=== PATIENT | male | born 1980 | race Caucasian/White ===

== ENCOUNTER 2019-12-15 15:23 | Emergency (ER) | payer MEDICAID, SELFPAY ==
[2019-12-15] VITALS (10 sets, daily range): BP systolic 119–136; BP diastolic 77–105; PULSE 84–104; RESP 15–19; TEMP 36.5–37.8; O2SAT 94–100; BMI 25.8
[2019-12-15 16:49] LABS: Basophils # 0.1 10^3/uL (0.0-0.1); Basophils % 0.3 %; Eosinophils # 0.2 10^3/uL (0.0-0.8); Eosinophils % 0.6 %; Hematocrit 44.2 % (42.0-52.0); Hemoglobin 14.5 g/dL (11.7-16.6); Lymphocytes # 3.2 10^3/uL (0.8-4.8); Lymphocytes % 12.5 %; Mean Corpuscular HGB Conc 32.8 g/dL (30.0-36.0); Mean Corpuscular Hemoglobin 28.6 pg (28.0-34.0); Mean Corpuscular Volume 87.2 fL (80-94); Monocytes # 1.9 10^3/uL (0.2-0.9); Monocytes % 7.3 %; Neutrophils # 19.14 10^3/uL (1.8-7.7); Neutrophils % 74.3 %; Nucleated Red Blood Cells % 0 %; Platelet Count 630 10^3/cmm (130-400); Red Blood Count 5.07 10^6/uL (4.1-5.3); Red Cell Distribution Width 13.7 % (12.1-15.1); White Blood Count 25.8 10^3/uL (4.0-10.0)
[2019-12-15 17:18] LABS: Alanine Aminotransferase 613 U/L (0-41); Albumin Level 3.1 g/dL (3.5-5.2); Alkaline Phosphatase 141 IU/L (40-130); Anion Gap 15.5 (5-19); Aspartate Amino Transferase 215 U/L (0-40); Blood Urea Nitrogen 18 mg/dL (6-20); Calcium 8.8 mg/dL (8.5-10.5); Carbon Dioxide 28 mmol/L (22-29); Chloride 86 mmol/L (98-107); Globulin 3.5 g/dL (1.3-4.6); Glomerular Filtration Rate 126.2 mL/min (90-130); Glucose 158 mg/dL (65-115); Osmolality Calculated 267 mOsm/kg (285-295); Potassium 3.5 mmol/L (3.5-5.1); Sodium 126 mmol/L (136-145); Total Bilirubin 0.8 mg/dL (0.15-1.2); Total Protein 6.6 g/dL (6.6-8.7)
--- NOTE | 2019-12-15 19:31 | CTR_ITS ---
PROCEDURE INFORMATION: Exam: CT Right Upper Extremity With Contrast, Upper Arm Exam date and time: 12/15/2019 7:53 PM Age: 39 years old Clinical indication: Arm, upper; Right; Patient HX: C/O pain - swelling and drainage ? spider bite; Additional info: Abscess, ? necrotizing fasciitis TECHNIQUE: Imaging protocol: CT of the Right upper extremity with contrast material. Exam focused on the upper arm. Radiation optimization: All CT scans at this facility use at least one of these dose optimization techniques: automated exposure control; mA and/or kV adjustment per patient size (includes targeted exams where dose is matched to clinical indication); or iterative reconstruction. Contrast material: OMNI 300; Contrast volume: 95 ml; Contrast route: INTRAVENOUS (IV); COMPARISON: No relevant prior studies available. RADIATION DOSE METRICS: Total DLP (mGy-cm): 2689.29 FINDINGS: Bones/joints: No osteomyelitis, bony destruction or periosteal reaction. There is no elbow joint effusion. No glenohumeral joint effusion. Soft tissues: There is a large multiloculated peripherally enhancing fluid collection containing multiple air bubbles consistent with a large abscess in the right biceps muscle that is dissecting distally along the entire muscle and tendon ending at the radial tuberosity in the forearm. This abscess on series 307, image 32 measures 21 cm in length and has a greatest AP measurement of 3.8 cm and a greatest transverse measurement of 2.5 cm. At the superior aspect of the abscess/proximal biceps tendon, a small component the abscess is tracking proximally but appears to be dissecting into the fascial plane between the pectoralis muscles along the right chest wall measuring 4.5 x 1.5 x 7.7 cm. There is abundant edema of the skin and subcutaneous fat along the right shoulder and chest wall compatible with cellulitis. No subcutaneous abscess. No additional gas in the muscles to suggest necrotizing fasciitis. Lymph nodes: There is adenopathy in the right axilla. CT/CT humerus RT w con [id number] IMPRESSION: 1. Giant abscess within the biceps muscle and following the distal tendon into the forearm and the proximal tendon proximal to the axilla with a component the abscess that thin dissects medially between the pectoralis muscles. 2. Abundant subcutaneous edema compatible with cellulitis without additional abscess. Note is made that the edema is continuing into the forearm and additional imaging of the forearm is recommended since the biceps abscess distal extent is not entirely included on this exam. 3. There is muscle edema specially in the biceps adjacent to the abscess but no findings of necrotizing fasciitis. No osteomyelitis. No joint effusions. Radiation Dose CTDIVOL = (mGy): DLP = 2689.29 (mGy-cm)
--- NOTE | 2019-12-15 19:35 | W.ED.EXTPRO ---
HPI - Extremity Problem General: Chief complaint: Extremity Injury, Upper Stated complaint: RIGHT ARM WOUND Time Seen by Provider: 12/15/19 18:47 Source: patient Mode of arrival: EMS Limitations: no limitations History of Present Illness: HPI Narrative: Patient is a 39-year-old male who states that he thinks he got bit by a spider on his right elbow about a week ago. He has had a sore there with increased swelling and pain of the right upper extremity. The pain and swelling has gradually worsened he came here to be seen in the emergency department. MD Complaint: extremity pain and extremity swelling Onset (ago): week(s) (1) Pain Consistency: constant Location: upper extremity Severity scale (1-10): 10 Quality: sharp Radiation: proximal Relieving factors: nothing Exacerbating factors: range of motion, weight bearing and palpation Associated symptoms: Reports arthralgias and myalgias; Deny chest pain, fever(s), rash, short of breath or other Review of Systems General: Reports: 10 or more systems reviewed and unremarkable except in HPI and below Const: Denies: fever(s) Eyes: Denies: change in vision or blurry vision ENMT: Denies: throat pain, enlarged tonsils, odynophagia, hoarseness, mouth pain or swelling of lips/tongue Card: Denies: chest pain Resp: Denies: dyspnea, productive cough or non-productive cough GI: Denies: abdominal pain, nausea or vomiting : Denies: flank pain, dysuria, urinary frequency, urinary urgency or urinary hesitancy Musc: Denies: neck pain, back pain or extremity swelling Skin/Breast: Denies: rash Neuro: Denies: headache(s), numbness in extremities or weakness in extremities Endo: Denies: polyuria, polydipsia or tired all the time [facility] ED PFSH: Medical History (Reviewed 12/15/19 @ 19:38 by Scout Alonso MD, [facility] [place] [facility] [place] Anxiety Carpal tunnel syndrome Cervical disc disease Social History (Reviewed 12/15/19 @ 19:38 by Scout Alonso MD, [facility] [place] Smoking and tobacco status: current every day smoker Alcohol intake: current Physical Exam Const: COMMON NORMALS: no acute distress, average body habitus, patient oriented x3, no limitations, healthy appearing, alert and well nourished HENMT: COMMON NORMALS: normocephalic, atraumatic and moist oral mucous membranes HEAD & SCALP: normocephalic and atraumatic Neck/C-Spine: COMMON NORMALS: full ROM, supple, no meningeal signs, no JVD and No carotid bruits Resp: COMMON NORMALS: normal respiratory effort, No retractions, No use of accessory muscles, clear to auscultation bilaterally and percussion normal AUSCULTATION: clear to auscultation bilaterally PERCUSSION: percussion normal Cardio: COMMON NORMALS: no JVD, regular rate, regular rhythm, S1 normal heart sound present, S2 normal heart sound present, No gallops present (Cardio), No clicks present (Cardio), No murmurs present (Cardio), No rub (Cardio) and Peripheral pulses 2+ throughout RATE: regular rate RHYTHM: regular rhythm HEART SOUNDS: S1 normal heart sound present and S2 normal heart sound present PERIPHERAL PULSES: Peripheral pulses 2+ throughout GI: COMMON NORMALS: Normal to inspection, nondistended, normoactive bowel sounds present, Soft to palpation, non-tender, No hepatosplenomegaly present, no masses and no bruits PALPATION: Yes Soft to palpation and Yes No hepatosplenomegaly present Extremity: COMMON NORMALS: normal to inspection, full ROM, capillary refill normal, no calf tenderness and no pedal edema OTHER: The right upper extremity is swollen and is about double the size of the left upper extremity. It is erythematous, warm, markedly tender. Most of the swelling is around the elbow joint. There is significant purulent drainage that is foul-smelling coming from the wound on the medial surface of the elbow. He has limitation of movement of the elbow. He is in severe pain. Neuro: COMMON NORMALS: patient oriented x3 SENSORIUM/ORIENTATION: Yes alert MENINGEAL SIGNS: Yes no meningeal signs Skin: COMMON NORMALS: no rashes or lesions noted, no wounds, turgor normal, no jaundice, no petechiae and no mottling GENERAL SKIN EXAM: no rashes or lesions noted and turgor normal Course ED course: 39-year-old gentleman who presented to the emergency department with right upper extremity swelling, pain, purulent discharge. The patient says he thinks is a spider bite. I eventually got to talk to the ambulance crew who brought him in and he said the patient admitted to shooting up illicit IV drugs. The patient has a giant abscess in his biceps multiple cardiac stents distally into his forearm and proximally to the axillary region and the pectoralis on the right. The patient needs surgical exploration of the abscess together with IV antibiotics. Vital Signs: Vital signs: Vital Signs Temperature 99.4 F 12/15/19 23:03 Pulse Rate 104 H 12/15/19 23:30 Respiratory Rate 17 12/15/19 23:30 Blood Pressure 136/81 12/15/19 23:30 Pulse Oximetry 95 12/15/19 23:30 MDM - Extremity (Nontraumatic) MDM Narrative: Medical decision making narrative: Patient with a large abscess to his right upper extremity. Disposition of this patient was challenging. I had contacted the general surgeon in this facility, Dr. Garza, and he states that because it extends to the muscle with likely muscle damage will defer to orthopedic surgery. I called the orthopedic surgeon vocational teacher in this facility Mary, and he stated that the patient needs infectious disease impute because of the extent of the abscess and so the patient was not appropriate for this facility. I called the orthopedic surgeon at [facility] in [place] and he declined to accept the patient. Subsequently I called [facility] to speak with the orthopedic surgeon, the orthopedic surgeon said I needed to call the community orthopedic surgeons at [facility]. I eventually got in touch with Dr. Armenta who declined the patient and figured the patient needed to be seen at [facility]. I finally was able to get the patient accepted by the ED physician at [facility], Dr. Holloway. While in the emergency department the patient received intravenous analgesia, intravenous vancomycin. Medical Records: Attestation: I reviewed the patient's medical records. Lab Data: Attestation: I reviewed the patient's lab results. Labs: Lab Results 12/15/19 12/15/19 12/15/19 Range/Units 16:40 16:40 16:40 WBC 25.8 H (4.0-10.0) 10^3/ uL RBC 5.07 (4.1-5.3) 10^6/u L Hgb 14.5 (11.7-16.6) g/dL Hct 44.2 (42.0-52.0) % MCV 87.2 (80-94) fL MCH 28.6 (28.0-34.0) pg MCHC 32.8 (30.0-36.0) g/dL RDW 13.7 (12.1-15.1) % Plt Count 630 H (130-400) 10^3/c mm MPV 9.0 (7.4-10.4) fL Neut % (Auto) 74.3 % Lymph % (Auto) 12.5 % [place] % (Auto) 7.3 % Eos % (Auto) 0.6 % Baso % (Auto) 0.3 % Neut # (Auto) 19.14 H (1.8-7.7) 10^3/u L Lymph # (Auto) 3.2 (0.8-4.8) 10^3/u L [place] # (Auto) 1.9 H (0.2-0.9) 10^3/u L Eos # (Auto) 0.2 (0.0-0.8) 10^3/u L Baso # (Auto) 0.1 (0.0-0.1) 10^3/u L Nucleated RBC % (a uto) 0 % Nucleated RBCs # 0.0 /100WBC Sodium 126 L (136-145) mmol/L Potassium 3.5 (3.5-5.1) mmol/L Chloride 86 L (98-107) mmol/L Carbon Dioxide 28 (22-29) mmol/L Anion Gap 15.5 (5-19) BUN 18 (6-20) mg/dL Creatinine 0.7 (0.7-1.2) mg/dL GFR Calculation 126.2 (90-130) mL/min Glucose 158 H (65-115) mg/dL Calculated Osmolal ity 267 L (285-295) mOsm/k g Lactate (0.5-2.2) mmol/L Calcium 8.8 (8.5-10.5) mg/dL Total Bilirubin 0.8 (0.15-1.2) mg/dL AST 215 H (0-40) U/L ALT 613 H (0-41) U/L Alkaline Phosphata se 141 H (40-130) IU/L C-Reactive Protein 125.0 H (0.0-4.9) mg/L Total Protein 6.6 (6.6-8.7) g/dL Albumin 3.1 L (3.5-5.2) g/dL Globulin 3.5 (1.3-4.6) g/dL Urine Opiates Scre en (Negative) ng/mL Ur Barbiturates Sc reen (Negative) ng/mL Ur Phencyclidine S crn (Negative) ng/mL Ur Amphetamines Sc reen (Negative) ng/mL U Benzodiazepines Scrn (Negative) ng/mL Urine Cocaine Scre en (Negative) ng/mL U Marijuana (THC) Screen (Negative) ng/mL 12/15/19 12/15/19 Range/Units 19:35 22:19 WBC (4.0-10.0) 10^3/ uL RBC (4.1-5.3) 10^6/u L Hgb (11.7-16.6) g/dL Hct (42.0-52.0) % MCV (80-94) fL MCH (28.0-34.0) pg MCHC (30.0-36.0) g/dL RDW (12.1-15.1) % Plt Count (130-400) 10^3/c mm MPV (7.4-10.4) fL Neut % (Auto) % Lymph % (Auto) % [place] % (Auto) % Eos % (Auto) % Baso % (Auto) % Neut # (Auto) (1.8-7.7) 10^3/u L Lymph # (Auto) (0.8-4.8) 10^3/u L [place] # (Auto) (0.2-0.9) 10^3/u L Eos # (Auto) (0.0-0.8) 10^3/u L Baso # (Auto) (0.0-0.1) 10^3/u L Nucleated RBC % (a uto) % Nucleated RBCs # /100WBC Sodium (136-145) mmol/L Potassium (3.5-5.1) mmol/L Chloride (98-107) mmol/L Carbon Dioxide (22-29) mmol/L Anion Gap (5-19) BUN (6-20) mg/dL Creatinine (0.7-1.2) mg/dL GFR Calculation (90-130) mL/min Glucose (65-115) mg/dL Calculated Osmolal ity (285-295) mOsm/k g Lactate 2.7 H (0.5-2.2) mmol/L Calcium (8.5-10.5) mg/dL Total Bilirubin (0.15-1.2) mg/dL AST (0-40) U/L ALT (0-41) U/L Alkaline Phosphata se (40-130) IU/L C-Reactive Protein (0.0-4.9) mg/L Total Protein (6.6-8.7) g/dL Albumin (3.5-5.2) g/dL Globulin (1.3-4.6) g/dL Urine Opiates Scre en Positive H (Negative) ng/mL Ur Barbiturates Sc reen Negative (Negative) ng/mL Ur Phencyclidine S crn Negative (Negative) ng/mL Ur Amphetamines Sc reen Positive H (Negative) ng/mL U Benzodiazepines Scrn Positive H (Negative) ng/mL Urine Cocaine Scre en Negative (Negative) ng/mL U Marijuana (THC) Screen Positive H (Negative) ng/mL Imaging Data^: Other CT: Attestation: I personally reviewed and interpreted this imaging study as follows: Radiologist's impression: [place] [id number] CT Scan Report Signed Patient: Efraín Jay #: [id number] : 1980Acct#:[id number] Age/Sex: 39 / MADM Date: 12/15/19 Loc: ERRoom/Bed: Attending Dr: Ordering Provider/Ordering MD: Scout Alonso MD, [facility] [place] [facility] [place] Date of Service: 12/15/19 Procedure(s): CT humerus RT w con [id number] Accession Number(s): [id number] Report Number: [id number] PROCEDURE INFORMATION: Exam: CT Right Upper Extremity With Contrast, Upper Arm Exam date and time: 12/15/2019 7:53 PM Age: 39 years old Clinical indication: Arm, upper; Right; Patient HX: C/O pain - swelling and drainage ? spider bite; Additional info: Abscess, ? necrotizing fasciitis TECHNIQUE: Imaging protocol: CT of the Right upper extremity with contrast material. Exam focused on the upper arm. Radiation optimization: All CT scans at this facility use at least one of these dose optimization techniques: automated exposure control; mA and/or kV adjustment per patient size (includes targeted exams where dose is matched to clinical indication); or iterative reconstruction. Contrast material: OMNI 300; Contrast volume: 95 ml; Contrast route: INTRAVENOUS (IV); COMPARISON: No relevant prior studies available. RADIATION DOSE METRICS: Total DLP (mGy-cm): 2689.29 FINDINGS: Bones/joints: No osteomyelitis, bony destruction or periosteal reaction. There is no elbow joint effusion. No glenohumeral joint effusion. Soft tissues: There is a large multiloculated peripherally enhancing fluid collection containing multiple air bubbles consistent with a large abscess in the right biceps muscle that is dissecting distally along the entire muscle and tendon ending at the radial tuberosity in the forearm. This abscess on series 307, image 32 measures 21 cm in length and has a greatest AP measurement of 3.8 cm and a greatest transverse measurement of 2.5 cm. At the superior aspect of the abscess/proximal biceps tendon, a small component the abscess is tracking proximally but appears to be dissecting into the fascial plane between the pectoralis muscles along the right chest wall measuring 4.5 x 1.5 x 7.7 cm. There is abundant edema of the skin and subcutaneous fat along the right shoulder and chest wall compatible with cellulitis. No subcutaneous abscess. No additional gas in the muscles to suggest necrotizing fasciitis. Lymph nodes: There is adenopathy in the right axilla. CT/CT humerus RT w con [id number] IMPRESSION: 1. Giant abscess within the biceps muscle and following the distal tendon into the forearm and the proximal tendon proximal to the axilla with a component the abscess that thin dissects medially between the pectoralis muscles. 2. Abundant subcutaneous edema compatible with cellulitis without additional abscess. Note is made that the edema is continuing into the forearm and additional imaging of the forearm is recommended since the biceps abscess distal extent is not entirely included on this exam. 3. There is muscle edema specially in the biceps adjacent to the abscess but no findings of necrotizing fasciitis. No osteomyelitis. No joint effusions. Radiation Dose CTDIVOL = (mGy): DLP = 2689.29 (mGy-cm) Dictated By:Melissa Heredia Signed By:Latanya Herediaigned Date/Time:12/15/192117 DD/ 16 Discharge Plan Discharge Patient Disposition: Xfer Short-Term Hosp Clinical Impression: Abscess of right upper arm and forearm, Cellulitis and abscess of upper arm and forearm, Drug abuse, IV Condition: Stable Discharge Orders: Transfer Out of Facility (Order); Ordered 12/15/19 Ordered By: Scout Alonso Referrals: Jacqueline Horn MD [Primary Care Provider] - Discharge Date/Time: 12/16/19 00:04 Coding Level of Care Code ED Arc Welding Machine Operator for Chg Fwd Exam Comprehensive
[2019-12-15] MEDS: morphine 4 mg/mL SDV 1 mL 8 MG IVP (20:12)
[2019-12-15] MEDS: ondansetron 2 mg/ML SDV 2 mL 4 MG IVP (20:12)
[2019-12-15] MEDS: vancomycin 1,000 MG in sodium chloride 0.9% 250 ML 250 MG IV (20:13)
[2019-12-15] MEDS: sodium chloride 0.9% 1,000 ML 999 ML IV ×2 (20:14→23:07)
--- NOTE | 2019-12-15 20:30 | PC.NURSE ---
patient to CT
[2019-12-15 20:51] LABS: Lactate (Lactic Acid level) 2.7 mmol/L (0.5-2.2)
[2019-12-15] MEDS: iohexol 300 mg/mL 100 mL Btl IV (20:51)
[2019-12-15 22:58] LABS: Amphetamines Screen Urine Positive (Negative); Barbiturates Screen Urine Negative (Negative); Benzodiazepines Screen Urine Positive (Negative); Cocaine Screen Urine Negative (Negative); Opiate Screen Urine Positive (Negative); PCP Screen Urine Negative (Negative); THC Screen Urine Positive (Negative)
== END 2019-12-16 00:04 | disposition short-term general hospital (02) ==
PROVIDERS: Physician Assistant; Emergency Provider Family Medicine; PCP Family Medicine
DX: L02.413 Cutaneous abscess of right upper limb (principal); L03.113 Cellulitis of right upper limb; F19.10 Other psychoactive substance abuse, uncomplicated; F17.210 Nicotine dependence, cigarettes, uncomplicated
CPT/HCPCS: 12345; 36415; 73201; 80053; 80306; 83605; 85025; 86140; 87040; 87205; 96361; 96365; 96375; 99284; 99285; J2270; J2405; J3370; J7030; J7050; Q9967

== ENCOUNTER → 2021-06-04 14:37 | Outpatient (BNVA) | payer MEDICAID, SELFPAY | PROVIDERS: PCP Family Medicine; Visit Provider Nurse Practitioner Family | DX: R05.9 Cough, unspecified (principal); J01.40 Acute pansinusitis, unspecified | CPT/HCPCS: 87400 ==

== ENCOUNTER 2022-10-17 17:30 | Emergency (ER) | payer SELFPAY ==
[2022-10-17 17:36] VITALS: BP 174/115; PULSE 93; RESP 16; TEMP 36.4; O2SAT 96; BMI 29.7
--- NOTE | 2022-10-17 18:26 | ED_ITS ---
HPI - Extremity Problem General: Chief complaint: Extremity Problem,Nontraumatic Stated complaint: hands swelling Time Seen by Provider: 10/17/22 18:15 History of Present Illness: Presents to the ER with complaints of redness, swelling, and itching on bilateral hands up to his elbows. 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 Patient is anthony rgic any medicine. Review of Systems General: Reports: 10 or more systems reviewed and unremarkable except in HPI and below PFSH ED PFSH: Medical History (Updated 10/17/22 @ 18:30 by Rafael Jay DO) Anxiety Carpal tunnel syndrome Cervical disc disease Social History Smoking and tobacco status: former smoker Alcohol intake: current Substance/Drug Use: current Substance/Drug use frequency: few times a month Physical Exam Const: COMMON NORMALS: no acute distress, average body habitus, patient oriented x3, no limitations, healthy appearing, alert and well nourished HENMT: COMMON NORMALS: normocephalic, atraumatic, hearing grossly normal bilaterally, external ears normal, Normal external nose present and moist oral mucous membranes HEAD & SCALP: normocephalic and atraumatic NOSE: Normal external nose present EXTERNAL EAR: Yes external ears normal Eye: COMMON NORMALS: Equal, round and reactive pupils present, EOMs intact bilaterally, conjunctivae normal and no scleral icterus CONJUNCTIVA: Yes conjunctivae normal PUPIL: Yes Equal, round and reactive pupils present Neck/C-Spine: COMMON NORMALS: full ROM, no lymphadenopathy, supple, no meningeal signs, no JVD and Thyroid normal THYROID: Thyroid normal Lymph: LYMPHATIC: no lymphadenopathy noted and no lymphedema noted Chest: COMMONS NORMALS: normal inspection of the chest and normal palpation of entire chest wall Resp: COMMON NORMALS: normal respiratory effort, No retractions, No use of accessory muscles and clear to auscultation bilaterally AUSCULTATION: clear to auscultation bilaterally Cardio: COMMON NORMALS: no JVD, regular rate, regular rhythm, S1 normal heart sound present, S2 normal heart sound present, No gallops present (Cardio), No clicks present (Cardio), No murmurs present (Cardio) and No rub (Cardio) RATE: regular rate RHYTHM: regular rhythm HEART SOUNDS: S1 normal heart sound present and S2 normal heart sound present GI: COMMON NORMALS: Normal to inspection, nondistended, normoactive bowel sounds present, Soft to palpation, non-tender, No hepatosplenomegaly present and no masses PALPATION: Yes Soft to palpation and Yes No hepatosplenomegaly present Neuro: COMMON NORMALS: patient oriented x3 SENSORIUM/ORIENTATION: Yes alert MENINGEAL SIGNS: Yes no meningeal signs Skin: NARRATIVE SKIN EXAM: Both hands to mid forearm red irritated swollen cellulitic looking. 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 And his hands are always in dirty water. It is obvious patient has a case of cellulitis on both of his arms. Patient will be put on Bactrim DS for this and given a shot of 10 mg of Decadron tonight to maybe help with the swelling. Patient should follow-up with his PCP in 7 days or sooner as needed. Differential Diagnosis Likely cellulitis; Unlikely herpes zoster, gout, superficial thrombophlebitis, deep venous thrombosis of upper extremity, lower extremity edema or deep vein thrombosis of lower extremity Medical Records I reviewed the patient's medical records. Lab Data I reviewed the patient's lab results. Discharge Plan Discharge Patient Disposition: Home Clinical Impression: Cellulitis Qualifiers: Site of cellulitis: extremity Site of cellulitis of extremity: upper extremity Laterality: unspecified laterality Qualified Code(s): L03.119 - Cellulitis of unspecified part of limb Condition: Stable Prescriptions: New sulfamethoxazole-trimethoprim [Bactrim DS] 800-160 mg tablet 1 tab PO BID 7 Days Qty: 14 0RF No Action olanzapine [Zyprexa] 5 mg tablet 5 mg PO BID 30 Days Qty: 60 5RF celecoxib [Celebrex] 200 mg capsule 200 mg PO BID Qty: 60 5RF carisoprodol [Soma] 350 mg tablet 350 mg PO .bedtime Qty: 30 4RF naloxone [Narcan] 4 mg/actuation spray,non-aerosol 1 spray intranasal Q2M PRN (Reason: opioid overdose) Qty: 1 0RF Rx Instructions: spray 1 dose into ONE nostril; alternate nostrils w each dose until help arr angel Discharge Orders: Discharge ED (Routine); Ordered 10/17/22 Ordered By: Rafael Jay Referrals: Jacqueline Horn MD [Primary Care Provider] - 1 week Patient Instructions: Cellulitis Activity Restrictions/Additional Instructions: Take your antibiotics as directed and finish them in entirety. Please follow-up with your family practice doctor in 7 days or sooner as needed. Coding Level of Care Code ED Script Supervisor for Ellyn Montiel
[2022-10-17] MEDS: dexamethasone 10 mg/mL INJ IM (18:38)
[2022-10-17] MEDS: sulfamethoxazole-trimeth DS 160-800 mg Tablet 1 TAB PO (18:39)
== END 2022-10-17 18:53 | disposition home or self-care (01) ==
PROVIDERS: Emergency Provider Emergency Medicine; PCP Family Medicine
DX: L03.114 Cellulitis of left upper limb (principal); L03.113 Cellulitis of right upper limb; Z87.891 Personal history of nicotine dependence
CPT/HCPCS: 96372; 99284; J1100

== ENCOUNTER → 2023-03-23 11:16 | Outpatient (BNVA) | payer OTHER, SELFPAY | PROVIDERS: PCP Family Medicine; Visit Provider Family Medicine | DX: R79.89 Other specified abnormal findings of blood chemistry (principal); E05.90 Thyrotoxicosis, unspecified without thyrotoxic crisis or storm | CPT/HCPCS: 80053; 84403; 84439; 84443; 85025 ==

== ENCOUNTER → 2024-07-05 13:39 | Outpatient (BNVA) | payer OTHER, SELFPAY | PROVIDERS: PCP Family Medicine; Visit Provider Orthopaedic Surgery | DX: M76.51 Patellar tendinitis, right knee (principal); M17.11 Unilateral primary osteoarthritis, right knee; M25.561 Pain in right knee; G89.29 Other chronic pain; M25.569 Pain in unspecified knee; M25.761 Osteophyte, right knee; M25.762 Osteophyte, left knee | CPT/HCPCS: 73560; 73565 ==

== ENCOUNTER 2025-02-16 06:52 | Emergency (ER) | payer OTHER, SELFPAY ==
--- NOTE | 2025-02-16 07:10 | XRR_ITS ---
PROCEDURE INFORMATION: Exam: XR Left Knee Exam date and time: 02/16/2025 7:17 AM Age: 44 years old Clinical indication: Injury or trauma; Other: Twisting injury; Sprain or strain; Patella or knee; Left TECHNIQUE: Imaging protocol: Radiologic exam of the left knee. Views: 3 views. COMPARISON: No relevant prior studies available. FINDINGS: Bones/joints: Mild patellofemoral bony degenerative changes. Soft tissues: Normal. XR/XR knee LT 3V* [id number] IMPRESSION: No definite acute findings.
[2025-02-16 07:12] VITALS: BP 159/116; PULSE 89; RESP 18; TEMP 36.7; O2SAT 96; BMI 28.1
[2025-02-16] MEDS: HYDROcodone-acetaminophen 5-325 mg Tablet 1 TAB PO (07:13)
--- NOTE | 2025-02-16 07:15 | W.ED.LOWEXIN ---
HPI - Extremity Injury (Lower) General: Chief Complaint: Extremity Injury, Lower Stated Complaint: Pain in both legs Time Seen by Provider: 02/16/25 06:54 Source: patient Mode of arrival: ambulatory Limitations: no limitations History of Present Illness: 44-year-old male dates that he was walking yesterday and felt like he had pulled his right hamstring states he had a sudden sharp pain in his right hamstring he states then he put all of his weight on his left leg and bucket twisted his left knee. States he is now having pain in his left knee along with difficulty straighten his left knee and having pain in his right hamstring. Rates the pain a 6 out of 10 much worse with walking improved with rest denies any other injuries Related Data Previous Rx's ?Medication ?Instructions ?Recorded sildenafil 100 mg tablet (Viagra) 100 mg PO DAILY PRN sexual 03/23/23 activity #10 tabs fluconazole 150 mg tablet 150 mg PO Q3D 10 days #4 tabs 07/03/24 sulindac 200 mg tablet 200 mg PO BID inflammation knee 07/03/24 #30 tabs nystatin 100,000 unit/gram topical See Rx Instructions .Route 07/23/24 powder .COMPLEX #60 grams alprazolam 0.5 mg tablet 0.5 mg PO DAILY PRN anxiety/sleep 11/12/24 #30 tabs hydrocodone 7.5 mg-acetaminophen 1 tab PO .once daily PRN pain 30 01/21/25 325 mg tablet days #30 tabs methocarbamol 750 mg tablet 750 mg PO Q6H PRN spasms #20 tabs 02/16/25 naproxen 500 mg tablet (Naprosyn) 500 mg PO BID PRN pain #20 tabs 02/16/25 Allergies Allergy/AdvReac Type Severity Reaction Status Date / Time No Known Allergies Allergy Verified 07/05/24 11:45 Review of Systems Musc: Reports: extremity pain PFS ED PFSH: Medical History (Updated 02/16/25 @ 07:31 by Xander Hernandez MD) Carpal tunnel syndrome Anxiety Cervical disc disease Social History Smoking and tobacco/nicotine status: current every day tobacco/nicotine user Alcohol intake: current Substance/Drug Use: current Substance/Drug use frequency: few times a month Physical Exam Const: COMMON NORMALS: no acute distress, patient oriented x3 and healthy appearing HENMT: COMMON NORMALS: normocephalic and atraumatic HEAD & SCALP: normocephalic and atraumatic Eye: COMMON NORMALS: conjunctivae normal CONJUNCTIVA: Yes conjunctivae normal Neck/C-Spine: COMMON NORMALS: full ROM and supple Chest: COMMONS NORMALS: normal inspection of the chest Resp: COMMON NORMALS: normal respiratory effort Cardio: COMMON NORMALS: regular rate RATE: regular rate Extremity: COMMON NORMALS: normal to inspection and full ROM NARRATIVE EXTREMITY EXAM: Some tenderness to left knee has full range of motion but does have pain with extension tenderness over right hamstring no obvious deformities distal pulse and sensation intact Neuro: COMMON NORMALS: patient oriented x3, moves all extremities and no focal motor deficits Psych: COMMON NORMALS: mental status grossly normal, Normal thought process present and cooperative THOUGHT PROCESS: Normal thought process present Skin: COMMON NORMALS: no rashes or lesions noted and no wounds GENERAL SKIN EXAM: no rashes or lesions noted Course Vital Signs: Vital signs: Vital Signs Temperature 98.1 F 02/16/25 07:12 Pulse Rate 63 02/16/25 07:16 Respiratory Rate 18 02/16/25 07:12 Blood Pressure 159/116 02/16/25 07:16 Pulse Oximetry 96 02/16/25 07:16 Oxygen Delivery Il thod Room Air 02/16/25 07:12 MDM - Extremity Injury (Lower) Medical Decision Making Patient presents with bilateral leg injury. On exam he likely pulled his right hamstring as tenderness along his hamstring no signs of bony injury. X-ray of his left knee was interpreted by me shows no signs of fracture likely a left knee sprain. He is able to ambulate we will prescribe him Naprosyn along with a muscle relaxant he is to ICU and will get follow-up orthopedics return if worsening he understands agrees plan Medical Records I reviewed the patient's medical records. XR interpretation done by ED provider, pending radiology final review ED provider radiology interpretation(s): xr l knee: no acute abnormality Discharge Plan Discharge Patient Disposition: Home Clinical Impression: Left knee sprain, Right hamstring injury Condition: Stable Prescriptions: New methocarbamol 750 mg tablet 750 mg PO Q6H PRN (Reason: spasms) Qty: 20 0RF naproxen [Naprosyn] 500 mg tablet 500 mg PO BID PRN (Reason: pain) Qty: 20 0RF No Action sildenafil [Viagra] 100 mg tablet 100 mg PO DAILY PRN (Reason: sexual activity) Qty: 10 1RF Rx Instructions: administer 30 minutes to 4 hours before activity fluconazole 150 mg tablet 150 mg PO Q3D 10 Days Qty: 4 0RF sulindac 200 mg tablet 200 mg PO BID Qty: 30 0RF nystatin 100,000 unit/gram powder See Rx Instructions .ROUTE .COMPLEX Qty: 60 1RF Dose Instruction: APPLY TOPICALLY TWICE DAILY Rx Instructions: APPLY TOPICALLY TWICE DAILY alprazolam 0.5 mg tablet 0.5 mg PO DAILY PRN (Reason: anxiety/sleep) Qty: 30 4RF hydrocodone-acetaminophen 7.5-325 mg tablet 1 tab PO .once daily PRN (Reason: pain) 30 Days Qty: 30 0RF Discharge Orders: Discharge ED (Routine); Ordered 02/16/25 Ordered By: Xander Hernandez Referrals: Jason Hernandez DO [Physician, Orthopedics] - 4-7 days Jacqueline Horn MD [Primary Care Provider, Family Practice] Discharge Diet: Advance as tolerated Discharge Activity: Increase activity as tolerated Patient Instructions: Knee Sprain (ED), Hamstring Injury (ED) Print Language: [place] Coding Level of Care Code ED Stock Control Supervisor for Ellyn Montiel
[2025-02-16 07:16] VITALS: BP 159/116; PULSE 63; O2SAT 96
[2025-02-16 07:35] VITALS: BP 150/98; PULSE 64; O2SAT 97
== END 2025-02-16 07:39 | disposition home or self-care (01) ==
PROVIDERS: Emergency Provider Emergency Medicine; PCP Family Medicine
DX: S83.92XA Sprain of unspecified site of left knee, initial encounter (principal); S89.91XA Unspecified injury of right lower leg, initial encounter; Z72.0 Tobacco use; X58.XXXA Exposure to other specified factors, initial encounter
CPT/HCPCS: 73562; 99283; J9999